=== PATIENT | female | born 1940 | race Two or more races ===

== ENCOUNTER 2023-03-19 17:39 | Inpatient (IN) | payer MEDICARE ==
[~2023-03-19] VITALS: Ht 165.1 cm; Wt 82.0 kg
[2023-03-19] MEDS ORDERED: NITROGLYCERIN 0.2MG/HR TOPICAL PATCH TD ONE (17:45)
[2023-03-19] MEDS ORDERED: ASPirin 81 mg TAB PO ONE (17:45)
[2023-03-19] MEDS ORDERED: ONDANSETRON HCL 4 MG/2 ML VIAL IV ONE (17:45)
[2023-03-19] MEDS ORDERED: MORPHINE SULFATE 4 MG/ML SYR/VIAL IV ONE (17:45)
[2023-03-19 18:09] LABS: Basophils # (auto) 0.2 10 ^3/uL (0-0.2); Basophils % (auto) 0.9 % (0.0-2.0); Eosinophils # (auto) 0.2 10 ^3/uL (0-0.8); Eosinophils % (auto) 0.9 % (0.0-7.0); Hematocrit 32.3 % (36.0-46.0); Hemoglobin 10.4 g/dL (12.2-16.2); Lymphocytes # (auto) 1.6 10 ^3/uL (0.4-5.4); Lymphocytes % (auto) 9.2 % (10.0-50.0); Mean Corpuscular Hemoglobin 26.9 pg (28.0-32.0); Mean Corpuscular Hgb Conc. 32.1 g/dL (32.0-36.0); Mean Corpuscular Volume 83.6 fL (80.0-100.0); Monocytes # (auto) 1.3 10 ^3/uL (0-1.3); Monocytes % (auto) 7.3 % (0.0-12.0); Neutrophils # (auto) 14.1 10 ^3/uL (1.6-8.6); Neutrophils % (auto) 81.7 % (37.0-80.0); Red Blood Cells 3.86 10^6/uL (4.0-5.20); Red Cell Distribution Width 14.6 % (11.8-14.3); White Blood Cell 17.2 10^3/uL (4.4-10.8)
[2023-03-19 18:25] LABS: INR 0.98 (0.9-1.15); Partial Thromboplastin Time 31.6 SEC (24.5-34.5); Prothrombin Time 10.3 sec (9.3-11.8)
[2023-03-19 18:30] LABS: Alanine Aminotransferase 12 U/L (7-40); Albumin 4.5 g/dL (3.2-4.8); Alkaline Phosphatase 97 U/L (46-116); Anion Gap 11 (5-15); Aspartate Aminotransferase 24 U/L (13-40); Blood Urea Nitrogen 14 mg/dL (9-23); Calcium 9.6 mg/dL (8.7-10.4); Carbon Dioxide 24 mmol/L (20-30); Chloride 99 mmol/L (98-107); Glucose 127 mg/dL (74-106); Magnesium 2.1 mg/dL (1.6-2.6); Potassium 4.6 mmol/L (3.5-5.1); Sodium 134 mmol/L (136-145)
[2023-03-19 18:31] LABS: Bilirubin, Total 0.4 mg/dL (0.2-1.0); Total Protein 6.8 g/dL (5.7-8.2)
[2023-03-19 19:20] VITALS: RESP 11; O2SAT 97
[2023-03-19] MEDS ORDERED: NITROGLYCERIN 0.4 MG SL TAB SL PRN (21:30)
[2023-03-19] MEDS ORDERED: DEXTROSE (50%) 50ML SYRG IV PRN (21:30)
[2023-03-19] MEDS ORDERED: ENOXAPARIN SOD 100 MG/1 ML SYRINGE SC ONE (21:30)
[2023-03-19] MEDS: ACCU-CHEK COMFORT CURVE STRIP VI SCH (22:33)
[2023-03-19] MEDS: MORPHINE SULFATE INJ 2 MG/ml SYRG IV PRN (22:44)
[2023-03-19] MEDS: InsuLIN REG 1unit/0.01ml Soln (100units/ml) SC SCH (22:44)
[2023-03-19] MEDS: METOPROLOL TARTRATE 25 MG TAB PO SCH (22:44)
[2023-03-19] MEDS: ATORVASTATIN 20 MG TAB PO SCH (22:44)
[2023-03-19 23:58] LABS: Urine Bacteria FEW /hpf (None Seen); Urine Blood Negative /uL (Negative); Urine Clarity Clear (Clear); Urine Color Yellow (Yellow); Urine Protein, UAD TRACE (Negative); Urine Specific Gravity 1.022 (1.001-1.035); Urine Urobilinogen Normal (Negative); Urine WBC 6 /hpf (0 - 5); Urine pH 6.5 (5.0-8.0)
[2023-03-20 04:37] LABS: Basophils # (auto) 0.1 10 ^3/uL (0-0.2); Eosinophils # (auto) 0.1 10 ^3/uL (0-0.8); Hemoglobin 9.6 g/dL (12.2-16.2); Lymphocytes # (auto) 1.2 10 ^3/uL (0.4-5.4); Mean Corpuscular Volume 82.7 fL (80.0-100.0)
[2023-03-20 04:38] LABS: Basophils % (auto) 0.7 % (0.0-2.0); Eosinophils % (auto) 0.7 % (0.0-7.0); Hematocrit 28.9 % (36.0-46.0); Lymphocytes % (auto) 10.6 % (10.0-50.0); Mean Corpuscular Hemoglobin 27.4 pg (28.0-32.0); Mean Corpuscular Hgb Conc. 33.2 g/dL (32.0-36.0); Monocytes # (auto) 1.3 10 ^3/uL (0-1.3); Monocytes % (auto) 11.7 % (0.0-12.0); Neutrophils # (auto) 8.5 10 ^3/uL (1.6-8.6); Neutrophils % (auto) 76.3 % (37.0-80.0); Red Cell Distribution Width 14.1 % (11.8-14.3); White Blood Cell 11.2 10^3/uL (4.4-10.8)
[2023-03-20 04:50] LABS: Chloride 101 mmol/L (98-107); Potassium 4.5 mmol/L (3.5-5.1); Sodium 134 mmol/L (136-145)
[2023-03-20 04:51] LABS: Anion Gap 6 (5-15); Carbon Dioxide 27 mmol/L (20-30)
[2023-03-20 04:52] LABS: Calcium 9.4 mg/dL (8.5-10.1)
[2023-03-20 04:56] LABS: BUN/Creatinine Ratio 10.7 (10.0-20.0); Blood Urea Nitrogen 13 mg/dL (9-23); Glucose 152 mg/dL (74-106)
[2023-03-20] MEDS: ACCU-CHEK COMFORT CURVE STRIP VI SCH ×4 (06:45→22:38)
[2023-03-20] MEDS: InsuLIN REG 1unit/0.01ml Soln (100units/ml) SC SCH ×4 (06:45→22:00)
[2023-03-20] MEDS: MORPHINE SULFATE INJ 2 MG/ml SYRG IV PRN (08:54)
[2023-03-20] MEDS ORDERED: LOSARTAN POTASSIUM 50 MG TAB PO SCH (10:00)
[2023-03-20] MEDS ORDERED: NITROGLYCERIN 0.4 MG SL TAB SL ONE (10:00)
[2023-03-20] MEDS: FUROSEMIDE 40 MG TAB PO SCH ×2 (10:50→10:52)
[2023-03-20] MEDS: METOPROLOL TARTRATE 25 MG TAB PO SCH ×2 (10:50→10:54)
[2023-03-20 11:47] VITALS: RESP 18; O2SAT 96
[2023-03-20 14:32] VITALS: BP 126/43; PULSE 67; RESP 18; TEMP 97.7; O2SAT 99
[2023-03-20 15:02] VITALS: PULSE 66
[2023-03-20 17:00] VITALS: BP 126/64; PULSE 66; RESP 18; TEMP 97.8; O2SAT 99
[2023-03-20 20:00] VITALS: PULSE 80; O2SAT 95
[2023-03-20 22:00] VITALS: BP 102/42; PULSE 76; RESP 17; TEMP 98; O2SAT 98
[2023-03-20] MEDS ORDERED: METOPROLOL TARTRATE 25 MG TAB PO SCH (22:00)
[2023-03-20] MEDS: ATORVASTATIN 20 MG TAB PO SCH (22:30)
[2023-03-21] VITALS (16 sets, daily range): BP systolic 112–147; BP diastolic 49–80; PULSE 64–74; RESP 13–18; TEMP 97.7–98.5; O2SAT 94–100
[2023-03-21] MEDS: InsuLIN REG 1unit/0.01ml Soln (100units/ml) SC SCH ×4 (06:16→21:46)
[2023-03-21] MEDS: ACCU-CHEK COMFORT CURVE STRIP VI SCH ×4 (06:16→21:46)
[2023-03-21 06:18] LABS: Basophils # (auto) 0.1 10 ^3/uL (0-0.2); Basophils % (auto) 0.6 % (0.0-2.0); Eosinophils # (auto) 0.2 10 ^3/uL (0-0.8); Eosinophils % (auto) 2.6 % (0.0-7.0); Hemoglobin 9.2 g/dL (12.2-16.2); Lymphocytes # (auto) 1.1 10 ^3/uL (0.4-5.4); Lymphocytes % (auto) 12.3 % (10.0-50.0); Mean Corpuscular Hemoglobin 27.2 pg (28.0-32.0); Mean Corpuscular Hgb Conc. 32.9 g/dL (32.0-36.0); Mean Corpuscular Volume 82.8 fL (80.0-100.0); Monocytes # (auto) 0.9 10 ^3/uL (0-1.3); Monocytes % (auto) 10.2 % (0.0-12.0); Neutrophils # (auto) 6.7 10 ^3/uL (1.6-8.6); Neutrophils % (auto) 74.3 % (37.0-80.0); Red Blood Cells 3.38 10^6/uL (4.0-5.20); Red Cell Distribution Width 14.5 % (11.8-14.3)
[2023-03-21 06:19] LABS: Chloride 101 mmol/L (98-107); Potassium 3.9 mmol/L (3.5-5.1); Sodium 136 mmol/L (136-145)
[2023-03-21 06:20] LABS: Anion Gap 10 (5-15); Carbon Dioxide 25 mmol/L (20-30)
[2023-03-21 06:21] LABS: Calcium 9.2 mg/dL (8.7-10.4)
[2023-03-21 06:25] LABS: Glucose 135 mg/dL (74-106)
[2023-03-21 06:26] LABS: BUN/Creatinine Ratio 12.6 (10.0-20.0); Blood Urea Nitrogen 16 mg/dL (9-23)
[2023-03-21] MEDS ORDERED: ENOXAPARIN SOD 30 MG/0.3 ML SYRINGE SC SCH (10:00)
[2023-03-21] MEDS ORDERED: LACTULOSE 20Gm/30ML SOLN PO ONE (10:15)
[2023-03-21] MEDS ORDERED: DOCUSATE SOD 100 MG CAP PO ONE (10:15)
[2023-03-21] MEDS: ASPirin 81 mg TAB PO SCH (11:23)
[2023-03-21] MEDS ORDERED: LIDOCAINE 2%HCL (LOCAL ANESTH.) INJ 20ML MDV ONE ×2 (12:06→14:02)
[2023-03-21] MEDS ORDERED: IOHEXOL 350 MG/ML 100ML IJ ONE ×2 (12:06→14:06)
[2023-03-21] MEDS ORDERED: fentaNYL CITRATE 100 MCG/2 ML VL ONE (12:53)
[2023-03-21] MEDS ORDERED: ANGIOMAX 250 MG VIAL IV ONE (12:53)
[2023-03-21] MEDS ORDERED: SODIUM CHL 0.9% 0 ML ONE (12:54)
[2023-03-21] MEDS ORDERED: MIDAZOLAM HCL 2MG/2ML 2ml VIAL (1mg/ml) ONE (12:54)
[2023-03-21] MEDS: FUROSEMIDE 40 MG TAB PO SCH (19:01)
[2023-03-21] MEDS: ATORVASTATIN 20 MG TAB PO SCH (21:43)
[2023-03-22] VITALS (7 sets, daily range): BP systolic 103–138; BP diastolic 60–77; PULSE 82–121; RESP 16–19; TEMP 97.4–98.3; O2SAT 96–100
[2023-03-22] MEDS ORDERED: MET25T PO (04:22)
[2023-03-22] MEDS ORDERED: SIMV20TA20 PO (04:22)
[2023-03-22] MEDS ORDERED: LOSA50TA46 PO (04:22)
[2023-03-22] MEDS ORDERED: FAMO40TA7 PO (04:22)
[2023-03-22] MEDS: ONDANSETRON HCL 4 MG/2 ML VIAL IV PRN ×2 (04:47→22:50)
[2023-03-22] MEDS: ACCU-CHEK COMFORT CURVE STRIP VI SCH ×4 (06:46→21:48)
[2023-03-22] MEDS: InsuLIN REG 1unit/0.01ml Soln (100units/ml) SC SCH ×4 (06:46→21:49)
[2023-03-22 09:09] LABS: Basophils # (auto) 0.1 10 ^3/uL (0-0.2); Basophils % (auto) 0.8 % (0.0-2.0); Eosinophils # (auto) 0.3 10 ^3/uL (0-0.8); Eosinophils % (auto) 2.4 % (0.0-7.0); Hematocrit 31.8 % (36.0-46.0); Hemoglobin 10.8 g/dL (12.2-16.2); Lymphocytes # (auto) 1.1 10 ^3/uL (0.4-5.4); Lymphocytes % (auto) 9.6 % (10.0-50.0); Mean Corpuscular Hemoglobin 27.6 pg (28.0-32.0); Mean Corpuscular Hgb Conc. 33.8 g/dL (32.0-36.0); Mean Corpuscular Volume 81.5 fL (80.0-100.0); Monocytes # (auto) 0.8 10 ^3/uL (0-1.3); Monocytes % (auto) 7.5 % (0.0-12.0); Neutrophils # (auto) 8.9 10 ^3/uL (1.6-8.6); Neutrophils % (auto) 79.7 % (37.0-80.0); Red Blood Cells 3.91 10^6/uL (4.0-5.20); Red Cell Distribution Width 14.3 % (11.8-14.3); White Blood Cell 11.1 10^3/uL (4.4-10.8)
[2023-03-22 09:29] LABS: Chloride 101 mmol/L (98-107); Potassium 3.8 mmol/L (3.5-5.1); Sodium 137 mmol/L (136-145)
[2023-03-22] MEDS: ASPirin 81 mg TAB PO SCH (09:29)
[2023-03-22 09:30] LABS: Anion Gap 11 (5-15); Calcium 9.3 mg/dL (8.5-10.1); Carbon Dioxide 25 mmol/L (20-30)
[2023-03-22] MEDS: FUROSEMIDE 40 MG TAB PO SCH (09:34)
[2023-03-22 09:36] LABS: BUN/Creatinine Ratio 11.7 (10.0-20.0); Blood Urea Nitrogen 14 mg/dL (9-23); Glucose 144 mg/dL (74-106)
[2023-03-22] MEDS ORDERED: POTA-228 PO (10:28)
[2023-03-22] MEDS ORDERED: FURO40TA4 PO (10:28)
[2023-03-22] MEDS ORDERED: AMIODARONE HCL 200 MG TAB PO ONE (17:45)
[2023-03-22] MEDS: ATORVASTATIN 20 MG TAB PO SCH (20:50)
[2023-03-22] MEDS: AMIODARONE HCL 200 MG TAB PO SCH (20:52)
[2023-03-23 05:00] VITALS: BP 114/63; PULSE 88; RESP 18; TEMP 98.3; O2SAT 96
[2023-03-23] MEDS: InsuLIN REG 1unit/0.01ml Soln (100units/ml) SC SCH (06:01)
[2023-03-23] MEDS: ACCU-CHEK COMFORT CURVE STRIP VI SCH (06:01)
[2023-03-23 08:00] VITALS: PULSE 84
[2023-03-23 09:00] VITALS: BP 115/74; PULSE 78; RESP 17; TEMP 97.8; O2SAT 98
[2023-03-23 09:10] VITALS: BP 126/60; PULSE 70; TEMP 36.8
[2023-03-23] MEDS: ASPirin 81 mg TAB PO SCH (10:01)
[2023-03-23] MEDS: AMIODARONE HCL 200 MG TAB PO SCH (10:02)
[2023-03-23] MEDS: FUROSEMIDE 40 MG TAB PO SCH (10:03)
[2023-03-23] MEDS ORDERED: MET50T PO (10:18)
[2023-03-23] MEDS ORDERED: APIX2.5T PO (10:18)
[2023-03-23] MEDS ORDERED: AMIO200T43 PO (10:18)
[2023-03-23 14:27] LABS: Hepatitis C Antibody Negative (Negative)
[2023-03-23 14:33] LABS: Hepatitis B Surface Antigen Negative (Negative)
== END 2023-03-23 10:40 | disposition home or self-care (01) | DRG 280 ==
LOC: ER 17:39 → EDBD 17:39 → TELE 21:40 → TELE-CENTR 03-20 13:49
PROVIDERS: ADMIT Nurse Practitioner; ATTEND Internal Medicine
PROC: 4A023N8 Measurement of Cardiac Sampling and Pressure, Bilateral, Percutaneous Approach (ICD-10-PCS; principal; 2023-03-21)
PROC: B2151ZZ Fluoroscopy of Left Heart using Low Osmolar Contrast (ICD-10-PCS; 2023-03-21)
PROC: B2111ZZ Fluoroscopy of Multiple Coronary Arteries using Low Osmolar Contrast (ICD-10-PCS; 2023-03-21)
DX: I21.4 Non-ST elevation (NSTEMI) myocardial infarction (principal); I50.41 Acute combined systolic (congestive) and diastolic (congestive) heart failure; R65.11 Systemic inflammatory response syndrome (SIRS) of non-infectious origin with acute organ dysfunction; J96.00 Acute respiratory failure, unspecified whether with hypoxia or hypercapnia; D72.829 Elevated white blood cell count, unspecified; D64.9 Anemia, unspecified; E11.9 Type 2 diabetes mellitus without complications; I11.0 Hypertensive heart disease with heart failure; I35.0 Nonrheumatic aortic (valve) stenosis; K59.00 Constipation, unspecified; I49.5 Sick sinus syndrome; I48.91 Unspecified atrial fibrillation; Z79.899 Other long term (current) drug therapy; Z95.0 Presence of cardiac pacemaker; Z95.2 Presence of prosthetic heart valve
CPT/HCPCS: 36415; 71045; 71275; 80048; 80053; 81001; 82962; 83605; 83735; 83880; 84443; 84484; 85025; 85379; 85610; 85730; 86803; 87340; 93005; 93306; 93460; 96372; 96374; 96375; 96376; 99152; G0378; J1815; J2250; J2405

== ENCOUNTER 2023-07-23 17:07 | Emergency (ER) | payer MEDICARE ==
[~2023-07-23] VITALS: Ht 167.6 cm; Wt 77.0 kg
[~2023-07-23 17:07] MED LIST: AMIO200T43 PO; APIX2.5T PO; FAMO40TA7 PO; FURO40TA4 PO; MET50T PO; POTA-228 PO; SIMV20TA20 PO
[2023-07-23] MEDS: HYDROcodone-ACET 10/325MG TAB PO ONE (20:08)
[2023-07-23 21:46] LABS: Urine Bacteria FEW /hpf (None Seen); Urine Blood Negative /uL (Negative); Urine Clarity Clear (Clear); Urine Color Yellow (Yellow); Urine Protein, UAD 1+ (Negative); Urine Specific Gravity 1.012 (1.001-1.035); Urine Urobilinogen Normal (Negative); Urine WBC 3 /hpf (0 - 5)
[2023-07-23] MEDS ORDERED: PERCOT PO (22:08)
[2023-07-23 22:30] VITALS: BP 93/55; PULSE 67; RESP 16; TEMP 97.9; O2SAT 96
[2023-07-23] MEDS: HYDROcodone-ACET 5/325MG TAB PO ONE (22:31)
== END 2023-07-23 22:52 | disposition home or self-care (01) ==
LOC: EDBD 17:07 → ER 17:07
DX: M54.50 Low back pain, unspecified (principal); G89.29 Other chronic pain; X50.1XXA Overexertion from prolonged static or awkward postures, initial encounter; Y93.01 Activity, walking, marching and hiking; Y92.89 Other specified places as the place of occurrence of the external cause; Y99.8 Other external cause status
CPT/HCPCS: 81001